=== PATIENT | male | born 1960 | race Caucasian/White ===

== ENCOUNTER 2019-06-26 13:45 | Observation (INO) | payer OTHER ==
[~2019-06-26 13:45] MED LIST: Iopamidol 370 76% 100 ML VIAL ONE
[2019-06-26 14:15] LABS: #Basophils 0.1 thou/uL (0.0-0.2); #Eosinphils 0.2 thou/uL (0.0-0.7); #Lymphocytes 2.1 thou/uL (1.20-3.40); #Monocytes 0.7 thou/uL (0.11-0.59); #Neutrophils 6.3 thou/uL (1.40-6.50); %Basophils 0.8 % (0.0-1.0); %Eosinophils 2.3 % (0.0-10.0); %Lymphocytes 22.2 % (21.0-51.0); %Monocytes 7.6 % (0.0-10.0); %Neutrophils 67.1 % (42.0-75.0); Hemoglobin 15.7 g/dL (14.0-18.0); Mean Corpuscular HGB CONC 32.5 g/dL (32.0-36.0); Mean Corpuscular Hemoglobin 27.9 pg (27.0-31.0); Mean Corpuscular Volume 85.9 fL (78.0-98.0); Mean Platelet Volume 7.4 fL (7.4-10.4); Platelet Count 256 thou/uL (130-400); RBC Distribution Width 12.5 % (11.5-14.5); Red Blood Cell (RBC) Count 5.63 mill/uL (4.70-6.10); White Blood Cell (WBC) Count 9.5 thou/uL (4.8-10.8)
--- NOTE | 2019-06-26 14:16 | RAD ---
XR Chest 1 View Portable HISTORY: Chest pain COMPARISON: None FINDINGS: There are changes of median sternotomy. There is elevation of the left hemidiaphragm. The h eart size is normal. The aorta is tortuous. No lobar consolidation, pneumothoraces or pleural effusions are seen. There are old right rib fractures. IMPRESSION: No radiographic evidence of acute cardiopulmonary process.
[2019-06-26 14:37] LABS: ALT (SGPT) 19 U/L (8-55); AST (SGOT) 20 U/L (5-34); Albumin 4.6 g/dL (3.5-5.0); Alkaline Phosphatase 93 U/L (40-110); Anion Gap 14 mmol/L (10-20); BUN (Urea Nitrogen) 14 mg/dL (8.4-25.7); Bilirubin, Total 0.5 mg/dL (0.2-1.2); Calc. Creatinine Clearance 0 mL/min (70-130); Carbon Dioxide 25 mmol/L (22-29); Chloride 101 mmol/L (98-107); Estimated GFR-MDRD 86; Globulin 3.4 g/dL (2.4-3.5); Glucose 117 mg/dL (70-105); Lipase 25 U/L (8-78); Potassium 4.6 mmol/L (3.5-5.1); Sodium 135 mmol/L (136-145)
--- NOTE | 2019-06-26 16:19 | CT ---
CT PULMONARY ANGIOGRAM WITH IV CONTRAST AND 3-D POSTPROCESSING: HISTORY:Chest pain, dyspnea, history of DVT FINDINGS: There is good contrast opacification of the pulmonary arterial vasculature without filling defects to suggest pulmonary embolism. The thoracic aorta is without aneurysm . No pleural or pericardial effusions are seen. No pneumothoraces, focal areas of consolidation or lung nodules are noted. There are dependent change s in the left lung base. There is scarring in the lingula. There are degenerative changes in the spine. Upper abdominal tomograms demonstrate calcified granuloma is in the liver and spleen. There is an ill defined about 2 cm lesion in the posterior segment of the right lobe of the liver. IMPRESSION: No CT evidence of pulmonary embolism. Further evaluation with right upper quadrant ultrasound is recommended to better characterize the jace er finding.
[2019-06-26] MEDS ORDERED: Nitroglycerin 0.4 MG TAB (25 Tab Bottle) PO PRN (18:15)
[2019-06-26] MEDS ORDERED: Acetaminophen 325 MG TAB PO PRN (18:18)
[2019-06-26] MEDS ORDERED: Aspirin Chewable 81 MG TAB PO SCH (18:30)
--- NOTE | 2019-06-26 18:32 | PDOC.HHP ---
Hospitalist HPI - History of Present Illness Chest pain History of Present Illness: PCP: None The patient is currently incarcerated in the [place] [facility] in [facility]. The patient is a 58/M with past medical history significant for CAD, WI, CABG x 4 (2007), DVT (no anticoagulation), HTN, smoking, drug abuse and COPD that presents for Chest pain. Patient reports that he developed chest pain yesterday morning while "just sitting around", located left chest and radiating to left neck, shoulder and arm, describes as "muscle spasm", intermittent, approximately 7 episodes, longest episode lasting 15 minutes, exacerbated by nothing and relieved by nothing, associated SOB, denies diaphoresis, light headedness, heart palpitations or nausea/vomiting. This afternoon, he developed the same chest pain while walking to lunch, except this time it was constant, 4/10 pain, associated SOB, no diaphoresis, light headedness, nausea or vomiting. He asked the guard to [facility]. Currently he reports his pain is unchanged. Last Echocardiogram 2007. ED Course: VS T 98.4F, BP 147/96, HR 104, RR 20, Sp02 96% RA EKG Sinus tachycardia with ST and T abnormalities CTA chest negative for Pulmonary embolism Trop 0.014 No medications administered. Hospitalist ROS - Review of Systems Constitutional: denies: fever, chills, sweats, weakness, malaise, other Eyes: denies: pain, vision change, conjunctivae inflammation, eyelid inflammation, redness, other ENT: denies: ear pain, ear discharge, nose pain, nose discharge, nose congestion , mouth pain, mouth swelling, throat pain, throat swelling, other Respiratory: reports: shortness of breath. denies: cough, dry, hemoptysis, SOB with excertion, pleuritic pain Cardiovascular: reports: chest pain. denies: palpitations, orthopnea, paroxysmal noc. dyspnea, edema, light headedness Gastrointestinal: denies: nausea, vomiting, abdominal pain, diarrhea, constipation, melena, hematochezia, other Genitourinary: denies: dysuria, frequency, incontinence, hematuria, retention, other Musculoskeletal: reports: neck pain (Left), shoulder pain (left), arm pain (Left ) Skin: denies: rash, lesions, gato, bruising, other Neurological: denies: weakness, numbness, incoordination, change in speech, confusion, seizures, other Hospitalist History - Past Medical History Source: patient Cardiac: reports: CAD, HTN, WI, Other (DVT, no anticoagulation) Pulmonary: reports: COPD - Past Surgical History Past Surgical History: reports: CABG (2007 (per patient)) Other Surgical History: Right ear surgery - Family History Family History: reports: cardiac disorder, respiratory disorder - Social History Smoking Status: Former smoker (1 ppd x 42 years, quit 1 year ago) Tobacco Type: cigarettes Alcohol: reports: Occassional Drugs: reports: methamphetamine (encarcerated for methamphetamine abuse) Living Situation: Other ([facility]carcerated 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 Activity level: independent ambulation - Exam General Appearance: NAD, awake alert Eye: PERRL, anicteric sclera ENT: normocephalic atraumatic Neck: supple, no JVD, no thyromegaly, no carotid bruit Heart: RRR, no murmur, no gallops, no rubs Heart - other findings: left pedal pulse weak, no swelling Respiratory: CTAB, no wheezes, no rales, no ronchi Gastrointestinal: soft, non-tender, non-distended, normal bowel sounds, no guarding, no rigidity Extremities: no cyanosis, no edema Neurological: no weakness, no focal deficits Musculoskeletal: normal tone, normal strength Psychiatric: normal affect, A&O x 3 Hospitalist Results - Labs Result Diagrams: 06/26/19 14:00 06/26/19 14:00 Lab results: WBC 9.5 thou/uL (4.8-10.8) 06/26/19 14:00 Hgb 15.7 g/dL (14.0-18.0) 06/26/19 14:00 Hct 48.3 % (42.0-52.0) 06/26/19 14:00 MCV 85.9 fL (78.0-98.0) 06/26/19 14:00 Plt Count 256 thou/uL (130-400) 06/26/19 14:00 Neutrophils % 67.1 % (42.0-75.0) 06/26/19 14:00 Sodium 135 mmol/L (136-145) L 06/26/19 14:00 Potassium 4.6 mmol/L (3.5-5.1) 06/26/19 14:00 Chloride 101 mmol/L (98-107) 06/26/19 14:00 Carbon Dioxide 25 mmol/L (22-29) 06/26/19 14:00 BUN 14 mg/dL (8.4-25.7) 06/26/19 14:00 Creatinine 0.91 mg/dL (0.7-1.3) 06/26/19 14:00 Glucose 117 mg/dL (70-105) H 06/26/19 14:00 Calcium 10.0 mg/dL (7.8-10.44) 06/26/19 14:00 Total Bilirubin 0.5 mg/dL (0.2-1.2) 06/26/19 14:00 AST 20 U/L (5-34) 06/26/19 14:00 ALT 19 U/L (8-55) 06/26/19 14:00 Alkaline Phosphatase 93 U/L (40-110) 06/26/19 14:00 Troponin I 0.014 ng/mL (< 0.028) 06/26/19 14:00 Serum Total Protein 8.0 g/dL (6.0-8.3) 06/26/19 14:00 Albumin 4.6 g/dL (3.5-5.0) 06/26/19 14:00 Lipase 25 U/L (8-78) 06/26/19 14:00 - EKG Interpretation EKG: sinus tachycardia - Radiology Interpretation CT scan - chest Status: report reviewed by id Hospitalist H&P A/P - Problem (1) Chest pain Code(s): R07.9 - CHEST PAIN, UNSPECIFIED Status: Acute Assessment and Plan: Admit to telemetry, observation status HEART score 4 engine monitor Trend troponins Give ASA 243mg, continue ASA 81mg in am check TSH, FLP, BNP, Mg level, UA, UDS/serum DS NM cardiac stress test echocardiogram HH diet , npo after midnight (2) Liver lesion, right lobe Code(s): K76.9 - LIVER DISEASE, UNSPECIFIED Status: Acute Assessment and Plan: Incidental finding of CTA chest Showed ill defined 2 cm lesion to the posterior segment of the right lobe of liver Recommend RUQ US for further evaluation. (3) HTN (hypertension) Code(s): I10 - ESSENTIAL (PRIMARY) HYPERTENSION Status: Chronic Assessment and Plan: Currently well controlled Will restart lisinopril 20mg daily when home medications reconciled. (4) COPD (chronic obstructive pulmonary disease) Status: Chronic Assessment and Plan: CXR no acute cardiopulmonary process Currently well controlled, patient denies need for prescribed inhalers. Duonebs prn Will restart inhalers when home medications reconciled. (5) H/O four vessel coronary artery bypass graft Code(s): Z95.1 - PRESENCE OF AORTOCORONARY BYPASS GRAFT Status: Chronic (6) H/O deep venous thrombosis Code(s): Z86.718 - PERSONAL HISTORY OF OTHER VENOUS THROMBOSIS AND EMBOLISM Status: Chronic Assessment and Plan: Reports history of BLE DVT Will start LMWH for DVT prophylaxis (7) H/O drug abuse Code(s): F19.11 - OTHER PSYCHOACTIVE SUBSTANCE ABUSE, IN REMISSION Status: Acute Assessment and Plan: reported methamphetamine abuse - Plan Plan: LMWH for DVT prophylaxis Pepcid for GI prophylaxis Full Code Sister is DPIFEANYI, Tami Romo @ [phone]
[2019-06-26 19:05] LABS: Troponin I 0.031 ng/mL (< 0.028)
[2019-06-26 19:11] LABS: Acetaminophen Less than 6.0 mcg/mL (10.0-30.0); Alcohol Less than 10 mg/dL (Less than 10); Salicylate Less than 8.0 mg/dL (15.0-30.0)
[2019-06-26] MEDS ORDERED: Aspirin Chewable 81 MG TAB ONE (19:47)
[2019-06-26] MEDS ORDERED: Nitroglycerin 2% Ointment 1 INCH/1 GM Packet ONE (19:47)
[2019-06-26 20:45] VITALS: BMI 24.3
[2019-06-26] MEDS ORDERED: Enoxaparin Sodium 40 MG/0.4 ML SYRINGE SC SCH (21:00)
[2019-06-26 21:08] LABS: Bacteria/HPF None Seen HPF (None Seen); Bilirubin Negative (Negative); Blood, Urine Negative (Negative); Clarity Clear (Clear); Glucose, Urine (Dipstick) Normal (Negative); Leukocyte Negative Leu/uL (Negative); Nitrite Negative (Negative); Protein, Urine (Dipstick) Negative (Neg-Trace); RBC/HPF 0-3 HPF (0-3); Squamous Epithelial None Seen HPF (0-3); Urobilinogen Normal mg/dL (Less than 2); WBC/HPF 0-3 HPF (0-3)
[2019-06-26 21:18] LABS: Amphetamine Not Detected (NotDetected); Barbiturates Screen Not Detected (NotDetected); Benzodiazepine Screen Not Detected (NotDetected); Cocaine Metabolite Screen Not Detected (NotDetected); Medtox Control Line Valid? VALID (VALID); Medtox Reader # READER 4; Methadone Not Detected (NotDetected); Methamphetamine Not Detected (NotDetected); Opiate Screen Not Detected (NotDetected); Oxycodone Screen Not Detected (NotDetected); Phencyclidine (PCP) Not Detected (NotDetected); THC/Cannabinoid Screen Not Detected (NotDetected); Tricyclic Screen Not Detected (NotDetected)
[2019-06-26 21:57] LABS: Troponin I 0.012 ng/mL (< 0.028)
[2019-06-26] MEDS: Famotidine 20 MG TAB PO SCH (22:01)
[2019-06-26] MEDS: Sodium Chloride 0.9% 1,000 ML IV SCH (22:03)
[2019-06-27 05:10] LABS: #Basophils 0.1 thou/uL (0.0-0.2); #Eosinphils 0.2 thou/uL (0.0-0.7); #Lymphocytes 2.7 thou/uL (1.20-3.40); #Monocytes 0.6 thou/uL (0.11-0.59); #Neutrophils 4.9 thou/uL (1.40-6.50); %Basophils 0.8 % (0.0-1.0); %Eosinophils 2.7 % (0.0-10.0); %Monocytes 7.4 % (0.0-10.0); %Neutrophils 57.1 % (42.0-75.0); Hemoglobin 15.1 g/dL (14.0-18.0); Mean Corpuscular HGB CONC 32.9 g/dL (32.0-36.0); Mean Corpuscular Hemoglobin 28.6 pg (27.0-31.0); Mean Corpuscular Volume 87.1 fL (78.0-98.0); Mean Platelet Volume 7.3 fL (7.4-10.4); Platelet Count 239 thou/uL (130-400); RBC Distribution Width 12.5 % (11.5-14.5); Red Blood Cell (RBC) Count 5.28 mill/uL (4.70-6.10); White Blood Cell (WBC) Count 8.6 thou/uL (4.8-10.8)
[2019-06-27 05:58] LABS: Anion Gap 14 mmol/L (10-20); BUN (Urea Nitrogen) 19 mg/dL (8.4-25.7); Calc. Creatinine Clearance 105 mL/min (70-130); Calcium 9.6 mg/dL (7.8-10.44); Carbon Dioxide 25 mmol/L (22-29); Cardiac Risk 4.8 (Less than 4.5); Chloride 104 mmol/L (98-107); Cholesterol 207 mg/dl (< 200 Desired); Estimated GFR-MDRD Greater than 90; Glucose 100 mg/dL (70-105); HDL Cholesterol 43 mg/dL (>60 Neg Risk); LDL Cholesterol, Calculated 137 mg/dL; Potassium 4.6 mmol/L (3.5-5.1); Sodium 138 mmol/L (136-145); Triglycerides 134 mg/dL (Less than 150)
--- NOTE | 2019-06-27 07:18 | ULT ---
EXAM: US Gallbladder RUQ CLINICAL HISTORY: Incidental finding and CT angiogram of the chest. Hypodense area in the right hepat ic lobe. COMPARISON: None. FINDINGS: Pancreas: The head of the pancreas has a normal echotexture. The remainder the pancreas is obscured by bowel gas Liver:Hyperechoic focus in the right hepatic lobe measuring 2.1 x 1.6 x 1.8 cm. No additional hepatic masses. Right hepatic lobe: 13.9 cm Gallbladder: No sonographic evidence of cholelithiasis, gallbladder wall thickening or pericholecysti c fluid. Macdonald's sign:Not commented upon Portal Vein: Patent. Appropriate directional flow Bile ducts: 0.5 cm common bile duct diameter Right kidney: No hydronephrosis. Right kidney measures 9.2 x 5.3 x 5.1 cm in length. IMPRESSION: 1. Hyperechoic focus in the right hepatic lobe corresponding to recent CT. Given the increased echoge nicity, a hepatic hemangioma is favored. CT findings do not entirely support a hemangioma. Therefore, confirmation with liver mass protocol CT or abdomen MRI can be performed on a nonemergent basis. 2. No sonographic evidence of cholelithiasis or cholecystitis.
[2019-06-27] MEDS: Famotidine 20 MG TAB PO SCH (08:53)
[2019-06-27] MEDS ORDERED: Aspirin 81 mg Enteric Coated Tablet PO SCH (09:00)
--- NOTE | 2019-06-27 11:41 | NM ---
Radionucleotide stress and rest myocardial perfusion scan with CT attenuation correction and SPECT im aging Radionucleotide left ventricular wall motion evaluation HISTORY: Chest pain. FINDINGS: Lexiscan protocol. There is heterogeneous uptake of radiotracer throughout the left ventric ular myocardium. No focal perfusion defect or reversibility. QGS analysis of gated SPECT images shows diffuse hypokinesis, most pronounced at the inferior wall. Ejection fraction calculated at 36 %. IMPRESSION: No scintigraphic evidence of ischemia. Depressed ejection fraction of 36% without significant focal wall motion abnormalities evident.
--- NOTE | 2019-06-27 12:18 | MRI ---
MR abdomen with and without IV contrast INDICATION: Right hepatic lobe lesion TECHNIQUE: Multiplanar, multisequence MR images were obtained of the abdomen with and without IV cont rast. Contrast: 16 cc MultiHance. COMPARISON: Right upper quadrant ultrasound dated June 27, 2019 and a CTA of the chest dated June 102019 FINDINGS: Liver: There is a 1.8 cm T2 hyperintense, T1 hypointense, peripherally enhancing lesion within segmen t 6 of the right hepatic lobe corresponding to the abnormality seen on the right upper quadrant ultrasound and CTA of the chest. The lesion demonstrates peripheral, nodular and discontinuous enhanc ement with progressive central filling consistent with a hemangioma. No additional focal hepatic lesion is evident. There is mild fatty infiltration of the liver. Gallbladder: Normal. Pancreas: Normal. Adrenal glands: Normal. Kidneys: Normal. Spleen: Normal. Spleen size: 11.6 cm. Lymphadenopathy or free fluid: None Vasculature: Appropriate flow voids are demonstrated. Bowel: Visualized bowel appears within normal limits. There is elevation the left hemidiaphragm. Osseous structures: No signal abnormality evident. IMPRESSION: 1. The right hepatic lesion identified on prior comparison evaluations corresponds to a hemangioma.
[2019-06-27] MEDS ORDERED: Magnevist 469MG/ML 20 ML VIAL ONE (14:53)
[2019-06-27] MEDS ORDERED: Regadenoson 0.4 MG/5 ML SYRINGE ONE (16:13)
[2019-06-27 16:30] VITALS: BP 162/84; TEMP 98.5
--- NOTE | 2019-06-27 17:37 | CON ---
DATE OF CONSULTATION: 06/27/2019 INDICATION FOR CONSULTATION: A 58-year-old gentleman with history of coronary artery disease, underwent bypass surgery approximately 10 or 11 years ago, who has not been seen by bilingual medical assistant since that time. He is now incarcerated approximately one year ago. He also has what appeared to be a femoropopliteal bypass to the right lower extremity. He had continued to smoke until most likely a year ago, perhaps since being incarcerated. He also said he had some DVT in the right lower extremity, but this may not have been DVTs or may have been what was found at the time of the occlusion in the right lower extremity that necessitated what appears to be a femoropopliteal bypass. He was noticing that while he was just sitting, he had some chest discomfort and then when he got up the next day and started walking to go have dinner or to have one of his meals, he felt more chest discomfort. He said that he also has some shortness of breath associated with it, but no other significant symptoms. At the time of his myocardial infarction 10 to 11 years ago, he did have chest pain and diaphoresis and then underwent evaluation and was found to have the coronary artery disease 3- vessel disease and required bypass surgery. At that time, he was told that he was very surekha, and I suspect he had severe 3-vessel coronary artery disease. His ejection fraction has been compromised most likely since that time on the stress test today. The results did not mention anything about scar formation, but ejection fraction was estimated at about 36%, I believe. By echocardiogram, it is also about 35% to 40% ejection fraction. However, by my evaluation of this stress test on the pictures that I am visualizing, it appears that the patient does have an inferior scar . There is no evidence of ischemia. He did have an EKG, which also shows some nonspecific changes, but no significant ST-segment elevation. His cardiac enzymes are negative for myocardial infarction and stress test did not show evidence of reversible ischemia. At this time, his vital signs have remained stable. He has had no further chest pain since being in the hospital and I believe he is stable to transfer back to the unit, but definitely will need followup at [facility] with a bilingual medical assistant there. They may opt to pursue further evaluation of his coronary artery disease if he continues to have further episodes of chest discomfort. PAST MEDICAL HISTORY: Significant for coronary artery disease, history of myocardial infarction, bypass surgery, history of peripheral vascular disease. He also has had a right what appears to be a femoropopliteal bypass. He has a history of hypertension. He also has hypercholesterolemia. He says he does not believe in taking medications, so he had not been taking his medicines, but obviously his cholesterol level is too high. He will need to be on some type of medications. He also has some history according to the records of COPD and had a history of illicit drug use in the past with methamphetamine. FAMILY HISTORY: Noncontributory. SOCIAL HISTORY: He stopped smoking couple of years ago. He is incarcerated. There is no illicit drug use or alcohol abuse at this time. He did have illicit drug use in the past as well as tobacco abuse. REVIEW OF SYSTEMS: A 12-point review of systems is relatively unremarkable except for what was noted in the history of present illness. PHYSICAL EXAMINATION: GENERAL: Reveals an elderly gentleman who actually appears somewhat older than his stated age. He is alert. He is oriented x3. VITAL SIGNS: Blood pressure is 131/69, heart rate is 73 and regular, respiratory rate 16. He is afebrile. HEENT: Shows head to be normocephalic and atraumatic. NECK: Carotid pulses are present without any bruits. CHEST: Clear to auscultation without rales, rhonchi, or wheezing. CARDIOVASCULAR: Reveals a regular rate and rhythm. Normal S1 and S2. I cannot hear an S3 nor an S4. There is a well-healed midline surgical incision after median sternotomy. ABDOMEN: Soft, nontender. Positive bowel sounds are present. EXTREMITIES: Show no clubbing or cyanosis. Right pedal pulses are present. I cannot palpate any pulses in the left lower extremity even from the groin all the way down to the foot. I did hear what I thought was a soft femoral bruit on the left side. Also, he has a femoral bruit on the right side. NEUROLOGIC: He appears to be intact. He obviously is incarcerated and is in shackles at this time and was not able to get out of the bed for further evaluation. LABORATORY DATA: Shows a troponin I on admission of 0.014, increased up to 0.031 and the next was down to 0.012. I would not consider this to be positive enzymes. His stress test showed ejection fraction 36%. Echocardiogram also shows ejection fraction 35% to 40%. His LDL level was 137, potassium 4.6, BUN 19, creatinine 0.83, and blood sugar was 100. His WBC is 8.6, hemoglobin 15.1, platelet count 239, 000. Chest x-ray was unremarkable for any evidence of pulmonary embolus. There was some calcified granuloma noted in the liver and spleen area. 2 cm mass in the posterior right lobe of the liver, which was felt to be by MRI, a hemangioma. IMPRESSION: 1. A 58-year-old patient with history of coronary artery disease and bypass surgery who complained of chest discomfort, who has a negative stress test and negative cardiac enzymes and no significant EKG findings. At this time, he most likely is stable to transfer back to the facility where he can be followed up at [facility] for further evaluation if indicated. 2. History of hypercholesterolemia. I would suggest we start this patient on some statin medications. For his cholesterol, we would hope to have a goal of LDL level of less than 70. 3. Hypertension. He was not taking any medications apparently and I would suggest he is to be started on a beta jere. His heart rate was elevated when he came to the hospital. Heart rate is 104, blood pressure was 147/96, O2 saturations were stable. I would start him on medications in the form of a beta-jere. 4. Decrease in ejection fraction, which is most likely due to previous myocardial infarction. He may have had some further damage for doing methamphetamines, but obviously he is negative at this time for methamphetamines in his drug screen. 5. Again overall, I believe the patient should be stable for transfer back to the facility and then further evaluation can take place at [facility]. Please note, he did have a right posterior lobe of the liver with some calcified granulomas, which appears to be a hemangioma. Job ID: [id number] MTDD
[2019-06-27] MEDS: Sodium Chloride 0.9% 1,000 ML IV SCH (17:59)
--- NOTE | 2019-06-28 13:12 | DIS ---
DATE OF ADMISSION: 06/26/2019 DATE OF DISCHARGE: 06/27/2019 DISCHARGE DIAGNOSES: 1. Chest pain possibly secondary to Angina 2. Liver Hemangioma CONSULTATIONS: Cardiology with Dr. Josue. PROCEDURES: None. BRIEF HISTORY OF PRESENT ILLNESS: This is a 58-year-old male with a past medical history of CAD, RI, CABG x4, and DVT, who had presented to the emergency room with chest pain. The patient states that his chest pain is located in the center of his chest radiating to his left neck, shoulder, and arm and described as a muscle spasm, approximately seven episodes. The patient developed another episode of chest pain while walking to lunch. The patient states that his pain felt very similar to when he had his heart attack except the only difference was that he was not sweating. EKG showed sinus tachycardia with ST and T abnormalities. CTA of his chest was negative for PE. Troponin was borderline positive at 0.031. The patient was admitted for further workup. HOSPITAL COURSE: Chest pain, possibly secondary to angina: The patient had troponin elevation which peaked at 0.031. EKG showed no significant changes. Chest Xray was normal, CTA showed no PE. Nuclear stress test showed no evidence of ischemia, but he had a depressed EF of 36% without significant wall motion abnormalities. Echocardiogram on the showed an EF of 35% to 40% with inferior wall akinesis. Dr. Josue thought this patient may have a scar. 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. He was resumed on all of his home medications. Liver hemangioma: The patient was noted to have a 2 cm lesion in the posterior segment of the right lobe of the liver. He had an MRI done of his abdomen, which showed a 1.8 cm enhancing lesion corresponding to a hemangioma. Abdominal ultrasound showed the same. The patient was advised to have this followed up as an outpatient. DISCHARGE PHYSICAL EXAMINATION: VITAL SIGNS: Temperature 98.5, heart rate 90, respiratory rate 15, O2 saturation 97% on room air, and blood pressure 162/84. GENERAL: The patient is alert, awake, and oriented x3. CVS: Regular rate and rhythm with no murmurs, rubs, or gallops. LUNGS: Clear to auscultation bilaterally. ABDOMEN: Positive bowel sounds, soft, nontender, nondistended. EXTREMITIES: No edema. LABORATORY DATA: CBC on 06/26: Normal. BMP on 06/26: Normal. LFTs on 06/25: Normal. Troponin I: 0.014, 0.031, and 0.012. BNP: 17. Lipase: 25. TSH: 0.94. UA on 06/25: Unremarkable. U-tox: Unremarkable. IMAGING DATA: Chest x-ray on 06/25: No acute disease. CTA on 06/25: Shows no evidence of PE. There is a 2 cm lesion in the posterior segment of the right lobe of the liver. Nuclear stress test: Depressed EF of 36% without significant focal wall motion abnormalities. MRI of abdomen on 06/26: Shows hemangioma in the right hepatic lobe up to 1.8 cm. Mild fatty liver. Ultrasound of abdomen: Hyperechoic focus in the right hepatic lobe corresponding to a hemangioma. Echo on 06/26: EF of 35% to 40%. Inferior wall akinetic-dyskinetic. Trace TR. DISCHARGE CONDITION: Stable. DISPOSITION: Back to his [facility]. ACTIVITY: As tolerated. DIET: Heart healthy diet. DISCHARGE INSTRUCTIONS: The patient should follow up with his PCP and his tile setter apprentice at [facility] within a week. He should have followup of his hemangioma as an outpatient. Job ID: [id number] MTDD
--- NOTE | 2019-06-30 13:11 | STRESS ---
Acquisition Time: 2019-06-27 10:21:55 Total Exercise Time: 00:01:00 Test Indications: CHEST PAIN Medications: Protocol: LEXISCAN Max HR: 115 BPM 70% of Pred: 162 BPM Max BP: 124/064 mmHG Max Work Load: 1.0 METS RESTING ECG: NORMAL SINUS RHYTHM AT 79 BPM WITH INTRAVENTRICULAR CONDUCTION DELAY SYMPTOMS: NONE NORMAL BP RESPONSE ECTOPY: NONE ECG STRESS: TRANSIENT NON-SPECIFIC ST SEGMENT AND T-WAVE CHANGES WITH LEXISCAN INFUSION INTERPRETATION: INDETERMINATE ECG/AWAIT NUCLEAR IMAGES FOR DEFINITIVE DIAGNOSIS Confirmed by DAISY ELAINE ([id number]), editor city ROMULO ABREU ([id number]) on 06/30/2019 1:11:11 PM Referred By: MOON ALBA Confirmed By:DAISY ELAINE
--- NOTE | 2019-07-01 10:54 | EKG ---
Test Reason : CP Blood Pressure : / mmHG Vent. Rate : 102 BPM Atrial Rate : 102 BPM P-R Int : 158 ms QRS Dur : 088 ms QT Int : 340 ms P-R-T Axes : 046 -01 055 degrees QTc Int : 443 ms Sinus tachycardia Possible Left atrial enlargement Nonspecific ST and T wave abnormality Abnormal ECG Lateral ST depression Confirmed by KUMAR TURNER, MOR ([id number]), editor farm journal ANGELINA DAVE ([id number]) on 07/01/2019 10:54:18 AM Referred By: Confirmed By:MOR HEATH MD
== END 2019-06-27 19:40 ==
LOC: ERS 13:45 → 2SW 18:23
PROVIDERS: ADMIT Internal Medicine; ATTEND Internal Medicine
DX: R07.89 Other chest pain (principal); D18.03 Hemangioma of intra-abdominal structures; I25.10 Atherosclerotic heart disease of native coronary artery without angina pectoris; I25.2 Old myocardial infarction; I10 Essential (primary) hypertension; J44.9 Chronic obstructive pulmonary disease, unspecified; F15.11 Other stimulant abuse, in remission; E78.00 Pure hypercholesterolemia, unspecified; Z87.891 Personal history of nicotine dependence; Z79.82 Long term (current) use of aspirin; Z79.899 Other long term (current) drug therapy; Z95.1 Presence of aortocoronary bypass graft
CPT/HCPCS: 36415; 71045; 71275; 74183; 76705; 78452; 80048; 80053; 80061; 80306; 80307; 81001; 83690; 83735; 83880; 84443; 84484; 85025; 93005; 93017; 93306; 96360; 96361; 96372; A9500; A9579; G0378; J1650; J2785; Q9967